=== PATIENT | female | born 2000 | race Caucasian/White ===

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

== ENCOUNTER 2022-02-10 16:32 | Emergency (ER) | payer OTHER, SELFPAY ==
[2022-02-10 16:32] VITALS: BP 150/100; PULSE 80; RESP 16; TEMP 36; O2SAT 100; BMI 23.5
--- NOTE | 2022-02-10 16:45 | RAD_ITS ---
HISTORY: Trauma, injury EXAMINATION/TECHNIQUE: XR Knee 3 Views: COMPARISON: None FINDINGS: BONES/JOINTS: No acute fracture or dislocation. Preservation of the joint spaces. SOFT TISSUES: No soft tissue swelling or gas. No radiopaque foreign body. RAD/Knee 3 Views IMPRESSION: No acute bony abnormality. at 1730 Reported and signed by: Travis Garcia MD Electronically Signed: Travis Garcia MD at 17:29 EDT ,
--- NOTE | 2022-02-10 17:44 | ED.VIS.LOWEX ---
HPI History of Present Illness Chief Complaint: Lower Extremity Injury Narrative Narrative: Patient presents with injury to her right knee that she sustained approximately an hour and 45 minutes ago. She states that she was walking, twisted her right knee after she felt pain and a pop in it. She fell to the ground. She did not hit her head or lose consciousness. She now has pain with weightbearing and movement. Her pain is mainly located on the inner aspect of her right knee. She denies other injuries. No significant past medical history. [facility] Medical History Encounter for screening for COVID-19 Home Medications medroxyprogesterone 150 mg/mL intramuscular suspension 150 mg IM [id number] #1 ml 07/24/20 [Rx Last Taken Unknown] medroxyprogesterone 150 mg/mL intramuscular suspension 150 mg IM [id number] #1 ml 01/22/21 [Rx Last Taken Unknown] Allergy/AdvReac Type Severity Reaction Status Date / Time No Known Allergies Allergy Verified 11/04/21 16:24 Family History Grandmother Diabetes Hypertension Heart disease Grandfather Heart disease Hypertension Social History Smoking Status: Never smoker alcohol intake: never substance use type: does not use what type of physical activity do you participate in: other details: cheerleading additional social history: Senior at [employer] ROS ROS ED ROS Narrative Constitutional: No fever, no chills. HEENT: No sore throat. No neck pain. No loss of vision. No rhinorrhea. Cardiovascular: No chest pain. No palpitations. No pedal edema. Respiratory: No cough, no shortness of breath. Abdominal: No abdominal pain. No nausea. No vomiting. Genitourinary: No dysuria. No hematuria. Musculoskeletal: No myalgias. Right medial knee pain worse with movement. Also worse with weightbearing. Neurologic: No headaches. No dizziness. No lightheadedness. Skin: No rash. No change in color. Psychiatric: No depression. No anxiety. EXAM Physical Exam Narrative Exam Narrative: Afebrile. Vital signs noted. HEENT: Normocephalic. Atraumatic. PERRL, EOMI. Neck soft and supple. No point tenderness or step off. Cardiovascular: Regular rate and rhythm. No murmurs, rubs, or gallops appreciated. Respiratory: No tachypnea. Lungs clear to auscultation bilaterally. Gastrointestinal: Abdomen soft, nontender, with normoactive bowel sounds. No rebound or guarding. Neurological: Awake. Alert. Nonfocal, nonlateralizing. Skin: No rash. Normal color. No pallor. Musculoskeletal: No pedal edema. Limited range of motion of right knee secondary to pain. Flexion and extension mechanisms are intact. Mild tenderness along medial meniscus area. No overt effusion. Palpable dorsalis pedis pulse. Able to pick leg off bed. Anterior drawer sign negative. Const Vital Signs: 02/10/22 16:32 Temperature 96.8 F L Temperature Source Temporal Pulse Rate 80 Respiratory Rate 16 Blood Pressure 150/100 H Blood Pressure Mean 116 Pulse Ox 100 Oxygen Delivery Method Room Air MDM MDM MDM Narrative Medical decision making narrative: I do feel that she may have more of a medial meniscus tear versus medial collateral ligament strain. X-rays were ordered per protocol. I see no evidence of fracture or large effusion. X-ray was interpreted by myself. She was given ibuprofen 800 mg here for analgesia. She will be placed in a knee immobilizer and will continue ice and elevation at home. I ordered crutches for her to be nonweightbearing. Her mother is at the bedside and states that she has an appointment with orthopedics tomorrow. They prefer to use Dr. Smith. At this point in time, I feel she can be discharged safely home with follow-up. Return instructions to the emergency department were reviewed. Disposition is discharged home in stable condition. Radiography Diagnostic Testing: Clinical Impression(s) from Imaging Studies Knee X-Ray 02/10/22 16:45 IMPRESSION: No acute bony abnormality. at 1730 Reported and signed by: Travis Garcia MD Electronically Signed: Travis Garcia MD at 17:29 EDT Reading Location ID and State: [facility] [place] / [place] Tel , Service support , Discharge Plan Triage Chief Complaint: Lower Extremity Injury ED Provider: Trip Mejias Dx/Rx/DC Orders Clinical Impression: Knee sprain, Internal derangement of knee Instructions: ED Meniscal Injury Knee Poss, ED Knee Sprain Prescriptions: No Action medroxyprogesterone [Depo-Provera] 150 mg/mL suspension 150 mg IM [id number] Qty: 1 RF: 3 medroxyprogesterone [Depo-Provera] 150 mg/mL suspension 150 mg IM [id number] Qty: 1 RF: 3 Stand Alone Forms: ED Work / School Excuse Primary Care Provider: Care Physician,No Primary Referrals: Malachi Smith DO [STAFF PHYSICIAN] - 1 Day (as scheduled) Care Physician,No Primary [Primary Care Provider] - Disposition Disposition: Home, Self Care
[2022-02-10] MEDS: Ibuprofen 400 MG Tablet 800 MG PO (17:51)
[2022-02-10 17:54] VITALS: BP 117/83; PULSE 84; RESP 18; O2SAT 99
== END 2022-02-10 18:31 | disposition home or self-care (01) ==
LOC: ED 18:04
PROVIDERS: Emergency Provider Emergency Medicine; PCP Pediatrics; Visit Provider Emergency Medicine
DX: S83.91XA Sprain of unspecified site of right knee, initial encounter (principal); M23.8X1 Other internal derangements of right knee; X50.1XXA Overexertion from prolonged static or awkward postures, initial encounter
CPT/HCPCS: 73562; 99284

== ENCOUNTER 2022-02-28 16:10 | Outpatient (CLI) | payer OTHER, SELFPAY ==
--- NOTE | 2022-02-28 16:12 | MRI_ITS ---
STUDY: MR Knee W/O Contrast 02/28/2022 7:08 PM REASON FOR EXAM: Female, 21 years old. RIGHT knee pain and instability. Medial and patellar pain. and quot;gave out and quot; TECHNIQUE: Standardized fat and water weighted pulse sequences were obtained in all 3 orthogonal planes. COMPARISON: xr Feb 10 2022 4:43pm . FINDINGS: Normal medial meniscus. Normal hyaline cartilage of the medial femorotibial compartment. Normal medial femoral condyle and tibial plateau. Normal medial collateral ligamentous complex (MCL). Normal distal semimembranosus, gracilis and semitendinosus tendons. Normal lateral meniscus. Normal hyaline cartilage of the lateral femorotibial compartment. There is reactive marrow edema of the lateral femoral condyle. Normal proximal tibiofibular articulation. Normal lateral collateral (fibular) ligament. Normal popliteus tendon. Normal biceps femoris tendon. Normal anterior cruciate ligament (ACL). Normal posterior cruciate ligament (PCL). Normal congruent patellofemoral articulation. Normal hyaline cartilage of the patellofemoral compartment. There is a partial sprain of the medial parapatellar retinaculum. There is a partial sprain of the lateral parapatellar retinaculum. There is reactive marrow edema of the medial patella. Normal quadriceps tendon. Normal patellar tendon. Normal Hoffa''s fat pad. There is a small volume joint effusion. MRI/Lower Ext Joint Only (Routine) IMPRESSION: There is a partial sprain of the medial parapatellar retinaculum. There is a partial sprain of the lateral parapatellar retinaculum. There is reactive marrow edema of the medial patella. There is a small volume joint effusion. Electronically Signed: Pierre Escobedo MD at 19:12 EDT Reading Location ID and State: [facility] / [place] , Service support ,
== END 2022-02-28 23:59 | disposition home or self-care (01) ==
PROVIDERS: PCP Pediatrics
DX: M23.91 Unspecified internal derangement of right knee (principal)
CPT/HCPCS: 73721

== ENCOUNTER 2022-08-18 12:00 | Outpatient (RCR) | payer OTHER, SELFPAY ==
--- NOTE | 2022-07-21 13:28 | HP.PTEVAL_ITS ---
Patient's Visit Information ZELDA SALTER is a 21 year old F referred to Physical Therapy by PARRIS Gilbert with a diagnosis of R knee dislocation. Date of Evaluation: 07/21/22 Physical Therapist: Pierre Kline, PT, ATC - Visit Plan Frequency: 1x/Week Duration: 4 Weeks Plan: Issue and instruct pt on HEP of R LE stretching and strengthening, and core stab ex's over next 4 visits - Subjective Pt reports her R patella dislocated on her in February of this year. Pt notes she had PT at that time and felt a little better, but then it popped out on her again last week. Pt reports was getting a drink at that time and her knee gave out on her causing her to fall to the ground. Pt reports she had x rays taken which revealed a small bone fragment. Pt reports she is doing a little better today, but is still very painful. Pt denies R LE tingling or numbness at this time. Pt reports sleep difficulty at this time unless she takes pain meds. Pt is in [employer] which requires her to be able to stand for a prolonged period of time which she is unable to do right now secondary to pain. Pt reports her bedroom is up stairs, which she has not attempted to negotiate at this time secondary to the fear of falling. 4/10 pain while at rest, 7/10 pain while walking or standing for a period of time. - Pain R patella Pain Intensity (Out of 10): 4 Pain Intensity Range: 7 - Objective Neuro: B LE sensation is WNL to light touch. Palpation: Pt is very sore along the medial border of the R patella. No obvious deformity at this time. ROM: L knee 0-123 degrees, R knee 0-117. MMT: L knee flex= 38, ext= 43; R knee flex= 27, ext= 11 #F. Girth at joint line: R knee 44 cm, L knee 45 cm. Special tests: Pos [facility] sign - Balance/Special Test Scores Lower Extremity Functional Score: 33 - Goals Goal 1:: Decrease R knee pain x 50% to aid with sleep Goal Time Frame: 4-6 Weeks Goal 2:: Increase R knee strength x 5-10#F to aid with stair negotiation Goal Time Frame: 4-6 Weeks Goal 3:: I with HEP Goal Time Frame: 4-6 Weeks - Rehabilitation Potential Physical Therapy Diagnosis: Pt has R knee pain, weakness, and limited ROM secondary to R patellar dislocation Rehabilitation Potential: Good - Anticipated Interventions Patient/Client Instruction: Educate patient on: Condition, Plan of Care For the Purpose of:: To improve self management Therapeutic Exercise to Include: Strength training, Endurance training, Balance training, Flexibilty training, Dynamic Lumbar Stabilization For the Purpose of:: To decrease pain, To improve muscle performance and motor function, To increase tolerance to activity/condition/position Cryotherapy (ice pack, ice massage): Yes For the Purpose of:: To decrease pain Thank you for the opportunity to evaluate your patient. For Medicare and Medicare HMO plans, please review the plan of care and approve it. It will need to be FAXED BACK to us at [phone] for Medicare purposes. For Medicare only, by signing this I certify the plan of care. Please let me know if there are questions or concerns regarding this plan of care. Physician Signature: Date:
--- NOTE | 2022-08-18 12:29 | HP.PTDCSUM ---
It has been my pleasure to treat ZELDA SALTER referred by PARRIS Gilbert, with the diagnosis of R knee dislocation for a total of 5 visit(s). Discharge Date: Please see the following information for a summary of their discharge status. Subjective: I am ready to be discharged R patella Pain Intensity (Out of 10): 4 % Improvement: 75 Objective/Function: R knee pain ranges from 0-6/10, currently 4/10. R knee MMT: flex= 41 #F, ext= 38 #F. Pt is I with HEP. Rx goals achieved Goal 1:: Decrease R knee pain x 50% to aid with sleep Goal Progress: Goal Met Goal 2:: Increase R knee strength x 5-10#F to aid with stair negotiation Goal Progress: Goal Met Goal 3:: I with HEP Goal Progress: Goal Met Plan: Discharge to HEP If there are questions or concerns regarding this patient's physical therapy, please feel free to call me at [phone]. Thank you for the referral of this patient. Sincerely, Pierre Kline, PT, ATC Balance/Gait/Functional tests - Balance/Special Test Scores Lower Extremity Functional Score: 54
== END 2022-08-18 12:54 | disposition home or self-care (01) ==
LOC: PT 12:00
PROVIDERS: PCP Pediatrics
DX: S83.004D Unspecified dislocation of right patella, subsequent encounter (principal); X58.XXXD Exposure to other specified factors, subsequent encounter
CPT/HCPCS: 97110; 97161; 97164

== ENCOUNTER → 2023-03-14 | Outpatient (CLI) | payer OTHER, SELFPAY ==
[2023-03-14 21:07] LABS: Chlamydia Trachomatis by PCR Negative (Negative); Neisserai gonorrhoeae by PCR Negative (Negative); Probe Check PASS; Sample Adequacy Control PASS; Specimen Processing Control PASS
== END | disposition home or self-care (01) ==
LOC: LABSPEC 16:30
PROVIDERS: PCP Pediatrics; Referring Provider Nurse Practitioner Women's Health; Visit Provider Nurse Practitioner Women's Health
DX: Z11.3 Encounter for screening for infections with a predominantly sexual mode of transmission (principal)
CPT/HCPCS: 87491; 87591

== ENCOUNTER → 2023-11-14 | Outpatient (CLI) | payer OTHER, SELFPAY ==
--- NOTE | 2023-11-14 10:32 | MRI_ITS ---
STUDY: MRI RIGHT KNEE REASON FOR EXAM: Female, 22 years old. Intermittent dislocation of patella. TECHNIQUE: Standardized fat and water weighted pulse sequences were obtained in all 3 orthogonal planes. COMPARISON: Right knee x-rays dated October 19, 2023. FINDINGS: Normal medial meniscus. Normal hyaline cartilage of the medial femorotibial compartment. Normal medial femoral condyle and tibial plateau. Normal medial collateral ligamentous complex (MCL). Normal distal semimembranosus, gracilis and semitendinosus tendons. Normal lateral meniscus. Normal hyaline cartilage of the lateral femorotibial compartment. Normal lateral femoral condyle and tibial plateau. Normal proximal tibiofibular articulation. Normal lateral collateral ( fibular ) ligament. Normal popliteus tendon. Normal biceps femoris tendon. Normal anterior cruciate ligament (ACL). Normal posterior cruciate ligament (PCL). Slight lateral tilt of the patella (axial series 4 images 8-13). Normal hyaline cartilage of the patellofemoral compartment. Normal medial and lateral patellar retinaculum. Normal quadriceps tendon. Normal patellar tendon. Normal Hoffa''s fat pad. Deep infrapatellar bursitis (sagittal series 6 image 6). Small joint effusion with small popliteal cyst (axial series 4 images 10-16). Other visualized soft tissues and osseous structures are normal. MRI/Lower Ext Joint Only (Routine) IMPRESSION: Deep infrapatellar bursitis. Slight lateral tilt of the patella. Small joint effusion with small popliteal cyst. No meniscal or ligamentous pathology. Electronically Signed: Antwon Lawton MD at 14:38 EST ,
== END | disposition home or self-care (01) ==
LOC: MRI 10:24
PROVIDERS: PCP Pediatrics; Visit Provider Nurse Practitioner
DX: M23.91 Unspecified internal derangement of right knee (principal)
CPT/HCPCS: 73721

== ENCOUNTER 2023-11-30 17:30 | Outpatient (RCR) | payer OTHER, SELFPAY ==
--- NOTE | 2023-11-01 18:15 | HP.PTEVAL ---
Patient's Visit Information Visit Information Visit Information: ZELDA SALTER is a 22 year old F referred to Physical Therapy by MARIO ALBERTO Payne with a diagnosis of R knee derangement. Date of Evaluation: 11/01/23 Physical Therapist: REBEKA Diaz Visit Plan Frequency: 2x /Week Duration: 2 Months Plan: 2X/ week for 8 weeks for R knee AROM, stretching, strengthening of hip and knee, core strength, gait training, stairs, and HEP HEP: SLR, S/L hip abd, hip ext Subjective Subjective: Pt rolled over in bed in the middle of the night and dislocated her R knee. It did swell and she iced it and it was fine. She reports that it hurts when she is standing all day by the end of the day. She has pain if she does a lot of stairs it does hurt. She saw an orthopedic Dr and her MRI is the day after [place]. It has not been swelling since 2 weeks ago. She has pain meds and she takes it once a day (Naproxen). She has no N&T. She has had 2 other dislocations on the R knee in the past. Pain R knee pain: Pain Intensity (Out of 10): 4 Objective Objective: Gait: Walks with R knee slight flexion and walks with slight decrease stance time on the R LE. LE MMT: R hip flex 11.4 and L 12.5 R knee ext 4 and L 24.4 R knee flex 17.6 and L 19.8 R hip abd 9.2 and L 11.8 R hip ext 9.1 and L 9.4 R knee AROM: 0- 116 L knee AROM: 0- 127 Apprehension of patellar mobs and very loose on the R Stairs: Up and down recip with no handrails but very cautious up and down the stairs. Balance/Special Test Scores Lower Extremity Functional Score: 54 Goals Goal 1:: I HEP Goal Time Frame: 6-8 Weeks Goal 2:: Increase R LE strength (At the time of the eval LE MMT: R hip flex 11.4 and L 12.5 R knee ext 4 and L 24.4 R knee flex 17.6 and L 19.8 R hip abd 9.2 and L 11.8 R hip ext 9.1 and L 9.4) Goal Time Frame: 6-8 Weeks Goal 3:: Increase R knee AROM (at the time of the eval: R knee AROM: 0- 116 L knee AROM: 0- 127) Goal Time Frame: 6-8 Weeks Goal 4:: Be able to go up and down stairs recip without apprehension Goal Time Frame: 6-8 Weeks Rehabilitation Potential Rehabilitation Potential: Good Anticipated Interventions Patient/Client Instruction: Educate patient on: Condition and Plan of Care For the Purpose of:: To decrease pain, To decrease swelling/inflammation, To increase ROM, To improve nutrient delivery to tissue, To improve muscle performance and motor function, To improve performance and independence with ADL's, To decrease level of supervision to perform tasks, To improve ability of physical actions for home/community/work/leisure, To improve gait and locomotor functions, To improve health of tissue, To decrease soft tissue restriction and To increase flexibility/ROM Therapeutic Exercise to Include: Strength training, Flexibilty training, Gait and locomotor training, Active ROM and Dynamic Lumbar Stabilization For the Purpose of:: To decrease pain, To decrease swelling/inflammation, To increase ROM, To improve nutrient delivery to tissue, To improve muscle performance and motor function, To improve ability to perform ADL's, To increase tolerance to activity/condition/position, To improve performance and independence with ADL's, To improve gait and locomotor functions, To improve health of tissue and To decrease soft tissue restriction Functional Training to Include: Gait training For the Purpose of:: To improve gait and locomotor functions Text: Thank you for the opportunity to evaluate your patient. For Medicare and Medicare HMO plans, please review the plan of care and approve it. It will need to be FAXED BACK to us at [phone] for Medicare purposes. For Medicare only, by signing this I certify the plan of care. Please let me know if there are questions or concerns regarding this plan of care. Physician Signature: Date:
--- NOTE | 2024-03-20 12:27 | HP.PT.NRP(2) ---
Patient Information Patient Information: ZELDA SALTER was seen in my office for initial evaluation on . The following Plan of Care was established for this patient: Last Seen Last Seen: This patient was last seen in our office . Pertinent comments regarding their Physical therapy will appear below: At this point I will be discontinuing this patient from physical therapy. I would be happy to see this patient again in the future if found appropriate by the physician. Thank you! Kathy Deleon, MPT
== END 2023-11-30 19:00 | disposition home or self-care (01) ==
LOC: PT 17:30
PROVIDERS: PCP Pediatrics; Referring Provider Nurse Practitioner; Visit Provider Nurse Practitioner
DX: M23.91 Unspecified internal derangement of right knee (principal)
CPT/HCPCS: 97110; 97161; 97164

== ENCOUNTER 2024-01-10 07:00 | Day surgery (SDC) | payer OTHER, SELFPAY ==
[2024-01-10] VITALS (9 sets, daily range): BP systolic 103–127; BP diastolic 69–84; PULSE 65–98; RESP 16–18; TEMP 36.1–36.7; O2SAT 97–100; BMI 32.1
--- OUTSIDE RECORDS SUMMARY | 2024-01-10 07:04 | XMS RPT_ITS | CCD ---
Author Name Unknown Address [address] [place] [address] Organization [facility] Care Team Providers Care Game Producer Name Role Phone JOSE JEFFREY, DR HUNG Escamilla Primary Care Physician Problems Problem Classification Problem Date Documented Da te Episodic/Chronic E Codes: Fall (1 source) Fall; Translations: [Unspecified fall, subsequent encounter] Episodic Joint disorders and dislocations; trauma-related (1 source) Dislocation of patellofemoral joint; Translations: [Unspecified dislocation of right patella, subsequent encounter] Episodic Other bone disease and musculoskeletal deformities (1 source) Disorder of bone; Translations: [Disorder of bone, unspecified] Episodic Sprains and strains (1 source) Sprain of knee; Translations: [Sprain of other specified parts of right knee, subsequent encounter] Episodic Results Test Name Value Interpretation Reference Range Facil ity Encounters Encounter Date Encounter Type Care Provider Facility Start: 03-08-2022 End: 04-26-2022 Physical therapy management MADHAVI GERONIMO PA-C [facility] Progress note 11-17-2021 Note Date & Type Note Facility 11-17-2021 Note HNO ID: [id number] Author: Hung Garcia MD Service: ? Author Type: Physician Type: Progress Notes Filed: 11/17/2021 5:27 PM Note Text: PEDIATRIC SICK VISIT SERVICE DATE: 11/17/2021 Patient presents with: headache, cough, runny nose, fatige: x 2 wks SUBJECTIVE: Zelda Salter is a 20 year old female accompanied by mother for evaluation of headache nasal congestion rhinorrhea cough. History was obtained from: patient Duration of Symptoms: 2 weeks Associated Symptoms: fatigue lost of taste and smell- did covid testing [facility] x 2 last week (11/01, 11/04)- PCR testing COSBY (worse for last few days)- Left side of forehead Had COSBY were occurring for the last few months (trobbing, Left frontal) Severity of Symptoms: mild and have been getting worse Modifying factors attempted: Acetaminophen without relief. Last given 10 hours ago Sick contacts: Sick contact with mom with Covid. Smoking Exposure: Does your child spend a significant amount of time in the care of anyone who smokes? No HISTORY: There is no problem list on file for this patient. PAST MEDICAL HISTORY Diagnosis Date - NEGATIVE MEDICAL HISTORY 06-26-2015 Normal Color Vision PAST SURGICAL HISTORY Procedure Laterality Date - NONE Allergies: ALLERGIES Allergen Reactions - Seasonal Allergies Cough Itchy, watery eyes and runny nose. SH: attending [facility] Medications: medroxyPROGESTERone (DEPO-PROVERA) 150 mg/mL amoxicillin-clavulanic acid (AUGMENTIN) 875-125 mg per tablet Take 1 tablet by mouth twice daily for 5 days. REVIEW OF SYSTEMS: GENERAL: Negative for fevers HEENT: Positive for: congestion and rhinorrhea RESPIRATORY: Positive for cough GI: Negative for vomiting. and Negative for diarrhea. SKIN: Negative for lesions, rash, and itching. OBJECTIVE: BP 110/66 Pulse 68 Temp 36.6 ?C (97.8 ?F) (Temporal) Resp 16 Wt 81.7 kg (180 lb 2 oz) LMP 01/06/2020 (Approximate) General: alert and active in no apparent distress Eyes: conjunctiva clear Ears: TMs translucent: bilaterally Nose: Tender to percussion over the left frontal sinus. Nasal congestion OP: moist without lesions Neck: supple, no adenopathy Lungs: clear to auscultation bilaterally, good air exchange, no retractions CVS: Normal rate, regular rhythm, no murmur Abdomen: soft, nondistended, nontender, no hepatosplenomegaly or masses Skin: No rashes, lesions or skin changes ASSESSMENT/PLAN: Encounter Diagnosis ICD-10-CM 1. Acute non-recurrent frontal sinusitis J01.10 Left frontal sinusitis - Discussed course of illness and contagiousness. - Medications as ordered. - Supportive measures for URI including saline, suction and vaporizer. - Symptomatic treatment with Acetaminophen or Ibuprofen. - Follow up for persistent or worsening symptoms, not drinking, decreased urination, or other concerns. SIGNATURE: Hung Garcia MD PATIENT NAME: Zelda Salter DATE: November 17, 2021 TIME: 11:46 AM [facility] Evaluation + Plan note Note Date & Type Note Facility Evaluation + Plan note No data available for this section [facility] Hospital Discharge instructions Note Date & Type Note Facility Hospital Discharge instructions No data available for this section [facility] Progress note Note Date & Type Note Facility Progress note No data available for this section [facility] Summary Purpose Family History No Family History Records Found Advance Directives No Advanced Directives Records Found Additional Source Comments INFORMATION SOURCE (unrecogn ized section and content) Care Team (unrecognized sect ion and content) Personnel Name: HUNG GARCIA MD Address: [address] [place] [phone] FOR RECORDS PERTAINING TO PATIENTS WHO ARE OR HAVE BEEN ENROLLED IN A CHEMICAL DEPENDENCY/SUBSTANCEABUSE PROGRAM, SOME INFORMATION MAY BE OMITTED. This clinical summary was aggregated from multiple sources. Caution should be exercised in using it in the provision of clinical care. This summary normalizes information from multiple sources, and as a consequence, information in this document may materially change the coding, format and clinical context of patient data. In addition, data may be omitted in some cases. CLINICAL DECISIONS SHOULD BE BASED ON THE PRIMARY CLINICAL RECORDS. [facility] [employer] [facility]. provides no warranty or guarantee of the accuracy or completeness of information in this document.
[2024-01-10 07:30] LABS: Internal QC Validated? YES +Cl - CLEAR BKGD
[2024-01-10 07:31] LABS: Record Kit Lot#,Urine Preg HCG0000718086
[2024-01-10 07:38] LABS: Pregnancy, Urine Negative Negative
[2024-01-10] MEDS: Lactated Ringers 1,000 ML 15 ML IV ×2 (07:51→08:29)
--- NOTE | 2024-01-10 08:18 | HP.PCM_ITS ---
HPI - General HPI Narrative ZELDA SALTER, is a 23 F who presents for right knee arthroscopy, reconstruction of medial patellofemoral ligament with allograft tissue. no changes to h and p knee marked. rab, narcotic counselling and post op instructions. ok to proceed. MR#: [id number] Acct: [id number] Name: ZELDA SALTER Rep #: [id number] : 2000 Provider: Dr. Benji Rodríguez MD Age/Sex: 22/F [place] [facility] [place] Status: Signed Intake Vital Signs 10/18/2309:15 Height 5 ft 7 in Intake Visit Reasons: RIGHT KNEE Accompanied by: Self Is patient in pain?: Yes Allergies No Known Allergies Allergy (Verified 11/23/23 09:33) Medications meloxicam 15 mg tablet 15 mg PO DAILY Pain #30 tabs 10/19/23 [Rx Confirmed 11/23/23] PFSH Medical History Derangement of knee, right Derangement of knee, right Family History Grandmother Diabetes Hypertension Heart diseaseGrandfather Heart disease Hypertension Social History Smoking Status: Never smoker alcohol intake: never substance use type: does not use what type of physical activity do you participate in: other HPI RIGHT KNEE Details: This documentation accurately reflects the service provided and the decisions made by me, Dr. Benji Rodríguez MD 11/23/23 0847. Part of today?s visit was documented by [ ], acting as scribe. ZELDA SALTER is a 22 year old F here today for R knee pain ... 1.5 yrs ago, twisted walking and had to go to the ED, popped back in was on crutches, did PT. happened again 3 months later, then a month ago - sleeping at the it went out to the side. per Veronika ... 21 year old F here today for right knee pain. She has previously dislocated her knee earlier this year for the first time on 02/10/22. States that on 07/10/2022 she was getting something to drink out of the fridge and she was turning around to shut the fridge and her knee gave out on her and she fell and she believes it dislocated again. Patient states that she was wearing her brace at the time of this event. Patient states that she was in a lot of pain and it swelled up, but not as much as the first time. States that she couldn't put much pressure on it. She states that she did elevate it and ice it. Patient states that her knee is still a little swollen. Patient states that she did take ibuprofen to help with the pain. States that she has noticed some popping and clicking a few times in her knee. Prolonged standing and moving increases her pain. She states she did not participate fully in PT due to insurance issues and not having enough time. Ortho Exam General General: Yes no acute distress Neurologic: Yes alert and Yes oriented x3 Psychologic: Yes reasonable and appropriate Right Knee Skin/Wound: Yes CDI, No erythema, No ecchymosis and No swelling Knee ROM: Yes ROM-Flexion 0-140 Examination: No Med jt line tenderness, No Lat jt line tenderness, Yes TTP inf pole patella, No Crepitus, No Pain with flexion, No Pain with extention, No Ariel's Test, No Dial at 90, No Dial at 60, No TTP Patellar tendon, No TTP Tibial tubercle, No TTP Pes Anserine and No Illiotibial band tenderness Quad Atrophy: No Stability: NML: Anterior Drawer, NML: Cosmo, NML: Posterior Drawer, NML: Valgus 0, NML: Valgus 30, NML: Varus 0 and NML: Varus 30 Patella Translation: 3 Apprehension with Lateral Translation: Yes Patellar Tilt Normal: No Patella Grind: No KNEE: full rom, mild J sign, normal gait and alignment, no increased femoral anteversion Left Knee Patella Translation: 3 Supplemental Info [facility] [address] [place] [address] Knee 4 or More Views MR#: [id number] Acct: [id number] Name: ZELDA SALTER Rep #: [id number] : 2000 F 22 From: Chau Orr MD PCP: Dr. Hung Shook MD Status: DEP AMB Study: Knee 4 or More Views Date of Exam: 10/19/23 Exam# [id number] Ordering Dr: Rita Do STUDY: X-RAY - RIGHT KNEE REASON FOR EXAM: Female, 22 years old. Atraumatic knee pain. TECHNIQUE: 4 view(s) of the knee. COMPARISON: Comparison is made with prior study July 14, 2022. FINDINGS: Normal visualized distal femur. Normal visualized proximal tibia and fibula. Normal proximal tibiofibular articulation. Normal medial femorotibial compartment. Normal lateral femorotibial compartment. Normal patellofemoral articulation. The soft tissue structures are unremarkable. RAD/Knee 4 or More Views IMPRESSION: Normal x-ray examination of the knee. Electronically Signed: Chau Orr MD at 12:08 [facility] Reading Location ID and State: [facility] / [place] , Service support , [facility] Imaging Services [address] [place] [id number] Lower Ext Joint Only (Routine) MR#: [id number] Acct: [id number] Name: ZELDA SALTER Rep #: [id number] : 2000 F 22 From: Antwon Lawton MD PCP: Dr. Hung Shook MD Status: REG [facility] Study: Lower Ext Joint Only (Routine) Date of Exam: 11/14/23 Exam# [id number] Ordering Dr: Rita Do STUDY: MRI RIGHT KNEE REASON FOR EXAM: Female, 22 years old. Intermittent dislocation of patella. TECHNIQUE: Standardized fat and water weighted pulse sequences were obtained in all 3 orthogonal planes. COMPARISON: Right knee x-rays dated October 19, 2023. FINDINGS: Normal medial meniscus. Normal hyaline cartilage of the medial femorotibial compartment. Normal medial femoral condyle and tibial plateau. Normal medial collateral ligamentous complex (MCL). Normal distal semimembranosus, gracilis and semitendinosus tendons. Normal lateral meniscus. Normal hyaline cartilage of the lateral femorotibial compartment. Normal lateral femoral condyle and tibial plateau. Normal proximal tibiofibular articulation. Normal lateral collateral ( fibular ) ligament. Normal popliteus tendon. Normal biceps femoris tendon. Normal anterior cruciate ligament (ACL). Normal posterior cruciate ligament (PCL). Slight lateral tilt of the patella (axial series 4 images 8-13). Normal hyaline cartilage of the patellofemoral compartment. Normal medial and lateral patellar retinaculum. Normal quadriceps tendon. Normal patellar tendon. Normal Hoffa''s fat pad. Deep infrapatellar bursitis (sagittal series 6 image 6). Small joint effusion with small popliteal cyst (axial series 4 images 10-16). Other visualized soft tissues and osseous structures are normal. MRI/Lower Ext Joint Only (Routine) IMPRESSION: Deep infrapatellar bursitis. Slight lateral tilt of the patella. Small joint effusion with small popliteal cyst. No meniscal or ligamentous pathology. Electronically Signed: Antwon Lawton MD at 14:38 EST , IS ratio 1.1 Coding Level of Care Code Off vis,est,level 3 Diagnoses Derangement of knee, right M23.91 Assessment and Plan Assessment and Plan (1) Derangement of knee, right: Status: Acute Plan: ZELDA SALTER is a 22 year old F here today for R knee pain ... 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 No obvious patella anu very mild slight flattening of the trochlea but no other obvious anatomic factors to correct beyond the MPFL tear. No obvious cartilage or meniscus lesions. We discussed the diagnosis prognosis different treatment options rest ice anti-inflammatories activity modifications physical therapy bracing as well as surgical reconstruction. Discussed the pros and cons risks and benefits of surgery as well as postoperative restrictions and recovery 3 to 6 months before going back to aggressive activities in 2 weeks on crutches. The patient u ndersrosendads wishes to proceed with a right knee arthroscopy, reconstruction of medial patellofemoral ligament with allograft tissue. Possible graft allogenicity or infection. Pros and cons risks and benefits were discussed with the patient including but not limited to infection, pain, stiffness, bleeding, damage to surrounding structures, neurovascular injury, recurrence or retear, failure or wear of hardware or fixation, instability, fracture, deep vein thrombosis and pulmonary embolism, anesthetic risks, , patient dissatisfaction, need for further surgery and other risks. Patient understood and wished to proceed with surgery, and signed the informed consent documentation. PFSH Medical History Derangement of knee, right Derangement of knee, right Gastric reflux Non-smoker Home Medications meloxicam 15 mg tablet 15 mg PO DAILY Pain #30 tabs 10/19/23 [Rx Last Taken 01/08/24] Allergy/AdvReac Type Severity Reaction Status Date / Time No Known Allergies Allergy Verified 01/10/24 07:46 Family History Grandmother Diabetes Hypertension Heart disease Grandfather Heart disease Hypertension Surgical History (Updated 12/14/23 @ 09:41 by Dolores Dill) History of wisdom tooth extraction Social History Smoking Status: Never smoker alcohol intake: never substance use type: does not use what type of physical activity do you participate in: other Vital Signs Vital Signs Vital Signs: 01/10/24 07:47 01/10/24 07:47 Temperature 98.1 F Temperature Source Temporal Pulse Rate 65 Respiratory Rate 18 Respiratory Pattern Normal Blood Pressure 103/79 Blood Pressure Mean 87 Blood Pressure Source Monitor Blood Pressure Position Sitting Blood Pressure Location Left Arm Pulse Ox 100 Oxygen Delivery Method Room Air Weight Weight: 205 lb 0.478 oz Body Mass Index (BMI) 32.1 Results Lab / Micro Data Labs: Laboratory Results - last 24 hr 01/10/24 07:25: Urine Test Negative
[2024-01-10] MEDS: Cefazolin 2 GM in 0.9% Normal Saline (100mL Bag) 100 ML IV (08:29)
--- NOTE | 2024-01-10 08:45 | RAD_ITS ---
STUDY: X-RAY - RIGHT KNEE REASON FOR EXAM: Female, 23 years old. Pain. Arthroscopy, deep bursitis, documentation purposes only. TECHNIQUE: 4 fluoroscopic spot films of the right knee. COMPARISON: Right knee radiographs dated 10/19/2023. FINDINGS: 4 fluoroscopic spot films of the right knee were obtained during arthroscopic surgery. There are surgical instruments overlying the right knee. There is no demonstrated fracture. RAD/Knee 1 or 2 Views IMPRESSION: Fluoroscopic spot films of the right knee during right knee arthroscopy. Electronically Signed: Ar Escoto MD at 10:44 EST ,
[2024-01-10] MEDS: Epinephrine (1 mg/ml) 1 MG/ML VIAL (08:55)
[2024-01-10] MEDS: Mupirocin Ointment 22gm Tube 1 APPLIC (10:08)
--- NOTE | 2024-01-10 10:56 | OP.PCM_ITS ---
Problems Associated Problem List Diagnoses (1) Derangement of knee, right: (2) Instability of right patellofemoral joint: Report of Operation Date of Procedure: 01/10/24 Pre-Operative Diagnosis: Right knee patellofemoral instability Post-Operative Diagnosis: Same Surgery/Procedure Performed:: Right knee arthroscopy reconstruction of medial patellofemoral ligament with allograft tissue Type of Anesthesia: General Anesthesiologist: Lacho Avendano Estimated Blood Loss (mL): 25 Description of Procedure: Patient brought to the operating room theater. Placed supine on the table radiolucent of the foot stress positioner to the patient's right side. Tourniquet applied to the right thigh appropriately padded. All bony prominences padded. SCD on the nonoperative leg. 2 g IV Ancef administered prior to start of procedure. General anesthesia induced. Lower extremity prepped and draped in the usual sterile fashion approximate base prep solution allowing over 3 minutes drying time prior to draping. Preoperative timeout performed confirm the site patient the surgery. Began by performing standard diagnostic arthroscopy through a standard anterolateral and anteromedial arthroscopy portals. Examined full intra- articular extent of the knee. Cartilage in all 3 compartments was normal. Normal medial lateral meniscus no tears. Normal bilateral gutters no loose bodies. Patella slightly subluxed laterally. ACL PCL was normal or both ligamentum mucosum. I took pictures throughout the case saved them onto the system. I then removed the arthroscope from my attention to the open part of procedure. I made a longitudinal incision centered over the medial aspect of patella carried dissection down through skin and subcutaneous tissue achieved meticulous hemostasis. I incised the medial retinaculum in line with the skin incision identified the medial border of the patella staying extra-articular. I plan for Arthrex fiber tack knee anchors but the first 1 pulled out unfortunately so I did have to switch to Arthrex 3.9 biocomposite swivelock anchors. I placed the anchors in a parallel fashion using the guide pins trying to stay more towards the superior two thirds the patella although overall the superior to inferior at length of the patella with short. Anterior tibial tunnels extra-articular. I used a cadaver allograft tissue semitendinosis 24 cm in length graft was thawed and warm normal saline. I whipstitch each end for a length of 1 inch using a Vik needle and Arthrex FiberWire suture. I attached the superior aspect of the graft and seated the anchor appropriately achieved good purchase and pullout strength. I then used the adjustable loop button from Arthrex as well placed the loop around the graft and then to create a U configuration where the tails were attached to the patella I then attached the distal end of the graft as well. I took a AP and lateral fluoroscopy to ensure appropriate placement of the graft on the patella. I then I turned my attention to the femoral side. I created a tunnel extra- articular for the graft. Identified shuttles point using both radiographic landmarks posterior femoral cortical line as well as Blumensaat's line and the posterior condylar line and in addition to this I used also used the radiolucent plastic guide from Arthrex. I passed the guidepin and feeling the saddle as well between the medial epicondyle and the adductor tubercle. I aimed the guidepin in the proximal and slightly anterior to avoid the notch. I then used a 6 mm reamer over top of this to the far cortex. Graft was then delivered into the tunnel at 30 degrees of knee flexion. I ensured to not over tighten the graft flipped the button and cut the suture short. I also tied the shortening sutures over the button to ensure no creep. Range the knee the graft felt an appropriate tension and flex tension 30 degrees as well as full flexion no crepitus. Ensured that the lateral border of the patella lined up with the groove when I was tensioning this. Closed the retinaculum with the stay sutures. Case was terminated fluoroscopy pictures taken and saved onto the system. I thoroughly irrigated the wounds let down the tourniquet approximately 90 minutes. Subcutaneous tissue closed with 2-0 Vicryl sutures and skin with 3-0 Monocryl. Skin cleaned with wet dry dressing followed application of Steri- Strips Adaptic 4 x 4 gauze ABD dressing and Krishna bandage with hinged knee brace in full extension locked. Patient woken up from the general anesthetic transferred off the operating table and taken to postanesthetic care unit in stable addition. All sponge needle instrument counts were correct no complications. cpt 16301? 65183? Grafts/Implants Used: semi T allograft Complications none Admit VTE Documentation VTE Present on Admission: No VTE Mechan Device Prophylaxis: SCD's VTE Pharm Prophylaxis ordered?: No Reason prophylaxis not ordered:: Treatment Not Indicated Procedures Musculoskeletal 20xxx-29xxx: Other Procedure See Report
--- NOTE | 2024-01-10 11:12 | DCINST_ITS ---
Discharge Instructions Diet Discharge Diet: No restrictions Activity Ice area for (Minutes): 10 Weight Bearing Status: Partial weight bearing Lifting Restrictions: crutches, leg straight Dressing / Incision Call your doctor if your incision/area has: Continuous Slow Oozing, Sudden Increased Bleeding, Increased Pain/ Swelling, Increased Redness, Foul Smelling Discharge and Swelling at the incision site Change Dressing in: leave in place till F/U Follow Up Care Please Follow Up With: Benji Rodríguez MD When: 2 days Test Results: Test results from this visit will be discussed in further detail at your follow- up appointment, if applicable. Discharge Plan Admission Attending Provider: Benji Rodríguez Primary Care Provider: Hung Shook Discharge Orders/Prescriptions Prescriptions: New oxycodone-acetaminophen [Endocet] 5-325 mg tablet 1 tab PO Q4H MDD 6 PRN (Reason: pain) 5 Days Qty: 20 0RF No Action meloxicam 15 mg tablet 15 mg PO DAILY Qty: 30 0RF Rx Instructions: Take once a day, do not take in conjunction with any other NSAIDS. Referrals / Follow Up: Hung Shook MD [Primary Care Provider] - Benji Rodríguez MD [Med Staff - Active Staff] - Disposition Disposition (needs filled in before D/C Order can be placed): Home, Self Care
[2024-01-10] MEDS: Ondansetron 4 MG/2 ML Vial IV (12:56)
[2024-01-10] MEDS: Oxycodone/Apap 5/325 Tablet PO (13:03)
== END 2024-01-10 13:34 | disposition home or self-care (01) ==
LOC: SDC 07:01 → AC 07:02
PROVIDERS: Anesthesiology; PCP Pediatrics; Referring Provider Orthopaedic Surgery Sports Medicine; Visit Provider Orthopaedic Surgery Sports Medicine
PROC: (CPT 27427; principal; 2024-01-10 08:15)
DX: M23.91 Unspecified internal derangement of right knee (principal); M25.361 Other instability, right knee
CPT/HCPCS: 27428; 29870; 64447; 01320; 73560; 76000; 81025; C1713; J7120; J2405

== ENCOUNTER → 2024-02-05 | Outpatient (CLI) | payer OTHER, SELFPAY ==
[2024-02-07 21:11] LABS: HPV Reflexed? NOT INDICATED
== END | disposition home or self-care (01) ==
LOC: LAB 11:11
PROVIDERS: PCP Pediatrics; Referring Provider Obstetrics & Gynecology; Visit Provider Obstetrics & Gynecology
DX: Z12.4 Encounter for screening for malignant neoplasm of cervix (principal)
CPT/HCPCS: 88175; G0145

== ENCOUNTER 2024-02-21 15:30 | Outpatient (RCR) | payer OTHER, SELFPAY ==
--- NOTE | 2024-01-17 11:23 | HP.PTEVAL ---
Patient's Visit Information Visit Information Visit Information: ZELDA SALTER is a 23 year old F referred to Physical Therapy by Dr. Benji Rodríguez MD with a diagnosis of Instability R PF joint s/p MPFL 01/10/24. Date of Evaluation: 01/17/24 Physical Therapist: Lacho Moeller, DPT, OCS, CSCS Visit Plan Frequency: 2-3x /Week Duration: 3 Months Plan: 2-3x/week for 8-12 weeks for ROM, strength per protocol(folder and scanned) gait training brace locked until doc appointment and WBAT (using crutches IE and could do one crutch comfortably) FES to R quad until no lag SLR ice and scar massage as needed Subjective Subjective: Had R knee surgery 01/10/24 one week ago. MPFL ligament repair due to knee dislocating 4x while walking, [id number] interest. L knee is OK. Surgery went well. Pain level 2/10 and not taking pain meds. Worst was 5/10 earlier in week. In locked brace and allowed TTWB according to patient. To use crutches and brace until she f/u in a week or so. HEP: none. Precautions: Sleeping is OK, improving. Wearing brace at night initially but not anymore. Basic ADLs; Dressing, bathroomOK and mom helps in shower. Steps at home but she has been sleeping downstairs. Employed as [employer]: off for 3 months maybe. On feet all day. Hobbies: enjoys concerts and wants to go back. Stands alot at [employer]. Pain R knee: Pain Intensity (Out of 10): 2 Pain Intensity Range: 2 and 5 Objective Objective: Walks NWB R into PT with crutches and brace locked mod I. [facility] chair and bed I don and doff brace I, corrected and tightened today as it slid down leg. Steps with L only one rail and one crutch taugth to patient and done with cues mod I. R knee0-68 AROM limited by anterior soreness. L knee0-128 patella moves well but painful on R. incisions dressed but good patency around them and no signs of excessive redness, heat or swelling. Sensation LE WNL to gross light touch B. Ankle pumps done easily and strength at 4/5 B. Able to SLR abd and ext R but not flexion. Too painful for now and unable to lift. 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 Rehabilitation Potential: Good Anticipated Interventions Patient/Client Instruction: Educate patient on: Condition, Plan of Care and Risk Factors For the Purpose of:: To decrease pain, To decrease swelling/inflammation, To increase ROM, To improve nutrient delivery to tissue, To improve muscle performance and motor function and To increase tolerance to activity/condition/position Therapeutic Exercise to Include: Strength training, Flexibilty training, Gait and locomotor training, Passive ROM and Active ROM For the Purpose of:: To decrease pain, To increase ROM, To improve nutrient delivery to tissue, To improve muscle performance and motor function, To improve ability to perform ADL's, To increase tolerance to activity/condition/position, To improve ability of physical actions for home/community/work/leisure, To improve gait and locomotor functions and To improve health of tissue Manual Therapy Techniques to Include: Scar massage and Soft tissue mobilization For the Purpose of:: To decrease pain and To increase ROM Functional electric stimulation: Yes (R quad) Cryotherapy (ice pack, ice massage): Yes For the Purpose of:: To decrease pain, To decrease swelling/inflammation, To improve nutrient delivery to tissue and To improve muscle performance and motor function Text: Thank you for the opportunity to evaluate your patient. For Medicare and Medicare HMO plans, please review the plan of care and approve it. It will need to be FAXED BACK to us at [phone] for Medicare purposes. For Medicare only, by signing this I certify the plan of care. Please let me know if there are questions or concerns regarding this plan of care. Physician Signature: Date:
--- NOTE | 2024-06-05 15:37 | HP.PTDCNRP_ITS ---
Patient Information Patient Information: ZELDA SALTER was seen in my office for initial evaluation on 01/17/24. The following Plan of Care was established for this patient: POC Established Initial Frequency: 2-3x /Week Initial Duration: 3 Months Anticipated Interventions Patient/Client Instruction: Educate patient on: Condition, Plan of Care and Risk Factors For the Purpose of:: To decrease pain, To decrease swelling/inflammation, To increase ROM, To improve nutrient delivery to tissue, To improve muscle performance and motor function and To increase tolerance to activity/condition/position Therapeutic Exercise to Include: Strength training, Flexibilty training, Gait and locomotor training, Passive ROM and Active ROM For the Purpose of:: To decrease pain, To increase ROM, To improve nutrient delivery to tissue, To improve muscle performance and motor function, To improve ability to perform ADL's, To increase tolerance to activity/condition/position, To improve ability of physical actions for home/community/work/leisure, To improve gait and locomotor functions and To improve health of tissue Manual Therapy Techniques to Include: Scar massage and Soft tissue mobilization For the Purpose of:: To decrease pain and To increase ROM Functional electric stimulation: Yes (R quad) Cryotherapy (ice pack, ice massage): Yes For the Purpose of:: To decrease pain, To decrease swelling/inflammation, To improve nutrient delivery to tissue and To improve muscle performance and motor function Last Seen Last Seen: This patient was last seen in our office 02/21/24. Pertinent comments regarding their Physical therapy will appear below: Pt seen 13 visits of POC and was doing well and released by doctor to work at [employer] February. She did not return for any therapy visits after that time. at t his point, it has been over 3 months and I will discontinue from my care At this point I will be discontinuing this patient from physical therapy. I would be happy to see this patient again in the future if found appropriate by the physician. Thank you! Lacho Moeller, DPT, OCS, CSCS Balance/Gait/Functional tests Balance/Special Test Scores Lower Extremity Functional Score: 17
== END 2024-02-21 19:00 | disposition home or self-care (01) ==
LOC: PT 15:30
PROVIDERS: PCP Pediatrics; Referring Provider Orthopaedic Surgery Sports Medicine; Visit Provider Orthopaedic Surgery Sports Medicine
DX: M25.361 Other instability, right knee (principal)
CPT/HCPCS: 97014; 97032; 97110; 97161; G0283

== ENCOUNTER → 2024-05-20 | Outpatient (CLI) | payer OTHER, SELFPAY | END | disposition home or self-care (01) | PROVIDERS: PCP Pediatrics; Visit Provider Nurse Practitioner Women's Health | DX: Z20.2 Contact with and (suspected) exposure to infections with a predominantly sexual mode of transmission (principal) | CPT/HCPCS: 87491; 87591 ==